=== PATIENT | female | born 1970 | race Caucasian/White ===

== ENCOUNTER 2019-07-22 13:15 | Outpatient (RCR) | payer OTHER, SELFPAY ==
--- NOTE | 2019-05-23 16:33 | PTOPEVAL ---
Thank you for referring this patient to [facility]. Please review, sign, date and return this plan of care EMILY. Pt referred to therapy to address her chronic right hip pain. She demonstrates muscle weakness, decreased hip range and increased pain with daily activities. She requires additional skilled therapy 2x/wk x 8 wk to address impairments and improved function. I agree with and certify that the following plan of care is medically necessary. Referring Physician Date Attending Provider: Mariana Lackey NP Referring Provider: *PT Outpatient Evaluation Start: 05/23/19 15:16 Freq: Status: Active Protocol: Document 05/23/19 15:16 MINOO (Rec: 05/23/19 16:24 CAP [email or web address]) Therapy Assessment Status Assessment Status Assessment Status Evaluation Outpatient Past Medical History Psychosocial History Hx Depression Yes Evaluation Information Problem Diagnosis right hip pain Onset 7 months Cause unknown Subjective Information Pt referred to therapy due to Query Text:As Reported By Patient/ right hip pain. She reports ~ Family 7 months of hip pain. Reports the pain is deep in the hip joint with constant ache pain. She reports she is unable to lay on right side. Reports difficulty and pain with steps , walking and standing. Reports increased hip joint pain with hip flex past 90 dg. She has increased pain with prolonged sitting and prolonged hip flex. States her sciatic nerve is also flared up due to waiting so long to seek treatment. She has to do prolonged sitting at a desk. States her office changed to electronic [employer] in 2018 and since 2019 spends most of the day at the computer. She will also have to carrying objects for work. She has 20 steps to negotiate at work. States she had a slip at work in . She did not have therapy or injection for the knee. She sleeps on her left side or back. She reports difficulty with sleeping due to pain.
--- NOTE | 2019-06-15 17:05 | PCPTNOTE ---
Patient called & cancelled scheduled appointment this date due to weather
--- NOTE | 2019-06-22 16:55 | PTOPEVAL ---
Thank you for referring this patient to [facility]. Please review, sign, date and return this plan of care EMILY. Pt has received 8 PT visits to address hip right hip pain. She has improved hip pain with minimal improved ability to perform sitting, walking and steps. She cont to demonstrate hip muscle weakness with significant soft tissue restriction and trigger point. She requires additional skilled therapy 2x/wk x 6 wk to achieve therapy goals. I agree with and certify that the following plan of care is medically necessary. Referring Physician Date Attending Provider: Mariana Lackey NP Referring Provider: *PT Outpatient Re-Evaluation Start: 05/23/19 15:16 Freq: Status: Active Protocol: Document 06/22/19 16:06 MINOO (Rec: 06/22/19 16:54 [facility] [email or web address]) Therapy Assessment Status Assessment Status Assessment Status Re-evaluation Evaluation Information Problem Diagnosis right hip pain Onset 7 months Cause unknown Subjective Information She wakes with decreased pain Query Text:As Reported By Patient/ and improved ability to Family perform steps as a result of therapy. She has to perform the steps repeatedly during the day for work. Reports cont to report deep, ache pain in the hip joint. She remains uable to lay on right side. She cont to have hip pain with prolong standing and walking. She has increased pain with prolonged sitting and prolonged hip flex. She is performing HEP consistently. She has been able to perform a walking program at least 1x/wk from 20 ' to 50'. Her pain remains a limitation with walking tolerance. Pain Assessment Timing of Pain Assessment Timing of Pain Assessment Re-assessment Pain Scale Pain Scale Used Numeric (1 - 10) Self Report Pain Assessment Right Hip(s) Reported Pain Level 3 Pain Description Aching,Radiating Pain Radiation Right Leg Pain Frequency Chronic Current Pain Intensity 3 Greatest Pain Intensity 9 Pain Aggravating Factors Exercise/Activity,Prolonged Position,Sitting,Stair Climbing,Walking,Weight Bearing/Standing Pain Behaviors
--- NOTE | 2019-07-06 09:46 | PCPTNOTE ---
Patient called & cancelled scheduled appointment this date due having to work late.
--- NOTE | 2019-07-22 14:07 | PTOPEVAL ---
Thank you for referring this patient to [facility]. Please review, sign, date and return this plan of care EMILY. Pt has received 13 therapy visits to address impairments of right hip. She has reached maximal potential with skilled therapy with most of her therapy goals achieved. She is indep with a HEP and verbalized understanding of importance of proper posture and glut stability with daily activities. DC skilled therapy with pt to cont with HEP. I agree with and certify that the following plan of care is medically necessary. Referring Physician Date Attending Provider: Mariana Glover NP Referring Provider: *PT Outpatient Re-Evaluation/Discharge Start: 05/23/19 15:16 Freq: Status: Active Protocol: Document 07/22/19 13:17 CAP (Rec: 07/22/19 13:45 [facility] [email or web address]) Therapy Assessment Status Assessment Status Assessment Status Re-evaluation Outpatient Past Medical History Psychosocial History Hx Depression Yes Evaluation Information Problem Diagnosis right hip pain Onset 7 months Cause unknown Subjective Information She was playing golf and hit Query Text:As Reported By Patient/ golf balls this weekend with Family increased pain and discomfort. She tried to do short bouts of walking with the golf. She reports cont ache of the hip region with walking activities. She cont to have some discomfort on the steps. Prolonged sitting or more painful than prolonged standing. She has been consistent with a walking program due to work. She reports significant improved radiating symptoms into right LE, occasional right knee pain with prolonged activity. She is able to sleep on right side without increased pain. Pain Assessment Timing of Pain Assessment Timing of Pain Assessment Re-assessment Pain Scale Pain Scale Used Numeric (1 - 10) Self Report Pain Assessment Right Hip(s) Reported Pain Level 1 Pain Description Aching Pain Frequency Chronic Current Pain Intensity 1 Greatest Pain Intensity 6 Pain Aggravating Factors Prolonged Position,Sitting, Walking Pain Behaviors None Pain Relief Interventions Used By Exercise Patient
== END 2019-07-25 09:45 | disposition home or self-care (01) ==
LOC: ANHPT 13:15
PROVIDERS: PCP Internal Medicine; Visit Provider Nurse Practitioner
DX: M25.551 Pain in right hip (principal)
CPT/HCPCS: 97014; 97110; 97140; 97162; G0283

== ENCOUNTER 2020-03-22 07:36 | Outpatient (CLI) | payer OTHER, SELFPAY ==
--- NOTE | ~2020-03-22 | MM_ITS ---
EXAMINATION: MM screening [facility] BI w debbie HISTORY: Screening mammogram TECHNIQUE: Craniocaudal and mediolateral oblique 3-D tomosynthesis images were obtained and synthetic 2-D images were generated. CAD analysis was submitted and interpreted. COMPARISON: 01/31/2019, 12/11/2017, 09/24/2016, 09/26/2016 BREAST PARENCHYMAL COMPOSITION: There are scattered areas of fibroglandular density. FINDINGS: There is no evidence of suspicious mass, calcification, or architectural distortion to sugg est malignancy in either breast. There has been no suspicious interval change. IMPRESSION: 1. No mammographic evidence of malignancy. 2. Recommend routine screening mammography in one year. BI-RADS Category 1: Negative Reviewed, dictated and finalized at location A. D PUMP OPERATOR
== END 2020-03-22 07:37 | disposition home or self-care (01) ==
LOC: ANHIMG 07:41
PROVIDERS: PCP Internal Medicine; Visit Provider Student in an Organized Health Care Education/Training Program
DX: Z12.31 Encounter for screening mammogram for malignant neoplasm of breast (principal)
CPT/HCPCS: 77063; 77067

== ENCOUNTER 2020-05-24 06:35 | Outpatient (CLI) | payer OTHER, SELFPAY ==
[2020-05-24 08:03] LABS: Basophils Absolute Auto 0.1 K/mm3 (0.0-0.1); Basophils Percent Auto 1.2 % (0.2-1.2); Eosinophils Absolute Auto 0.2 K/mm3 (0-0.3); Eosinophils Percent Auto 4.5 % (0-4.4); Hematocrit 43.5 % (37.0-47.0); Hemoglobin 14.3 g/dL (12.0-15.0); Immature Granulocyte Absolute 0.02 K/mm3 (0.00-0.031); Immature Granulocyte Percent A 0.4 % (0-0.5); Lymphocytes Absolute Auto 1.85 K/mm3 (0.9-3.2); Lymphocytes Percent Auto 36.1 % (18.3-44.2); Mean Corpuscular HGB Conc 32.9 g/dl (32-36); Mean Corpuscular Volume 94.2 fl (80-100); Mean Platelet Volume 9.3 fl (7.4-10.4); Monocytes Absolute Auto 0.6 K/mm3 (0.1-0.6); Monocytes Percent Auto 11.7 % (2.6-8.5); Neutrophils Absolute Auto 2.4 K/mm3 (1.3-6.7); Neutrophils Percent Auto 46.1 % (45.5-73.1); Platelet Count Result 264 k/mm3 (150-375); Red Blood Count 4.62 M/mm3 (4.2-5.4); Red Cell Distribution Width 12.5 % (11.5-14.5); White Blood Count 5.1 K/mm3 (4.5-10.0)
[2020-05-24 08:15] LABS: Alanine Aminotransferase 22 U/L (4-35); Albumin Level 3.9 g/dL (3.5-5.1); Alkaline Phosphatase 74 U/L (38-126); Anion Gap 1 mmol/L (8-16); Aspartate Amino Transferase 30 U/L (14-36); Bilirubin,Total 0.5 mg/dL (0.2-1.3); Blood Urea Nitrogen 17 mg/dL (7-17); Calcium 9.2 mg/dL (8.4-10.2); Carbon Dioxide 37 mmol/L (22-30); Chloride 103 mmol/L (98-107); Cholesterol 188 mg/dL (0-200); Estimated Glomerular Filt Rate > 60; Glucose 92 mg/dL (65-105); HDL Direct 69 mg/dL; Potassium 4.2 mmol/L (3.4-5.0); Sodium 141 mmol/L (137-145); Triglycerides 46 mg/dL (<150)
[2020-05-24 08:26] LABS: LDL Cholesterol Direct 95 mg/dL
== END 2020-05-24 06:36 | disposition home or self-care (01) ==
PROVIDERS: PCP Internal Medicine; Visit Provider Nurse Practitioner
DX: Z13.228 Encounter for screening for other metabolic disorders (principal); Z13.220 Encounter for screening for lipoid disorders
CPT/HCPCS: 36415; 80053; 80061; 85025

== ENCOUNTER 2020-06-07 07:22 | Outpatient (CLI) | payer OTHER, SELFPAY ==
[2020-06-07 07:53] LABS: Anion Gap -1 mmol/L (8-16); Blood Urea Nitrogen 19 mg/dL (7-17); Calcium 8.8 mg/dL (8.4-10.2); Carbon Dioxide 37 mmol/L (22-30); Chloride 102 mmol/L (98-107); Estimated Glomerular Filt Rate 58; Glucose 88 mg/dL (65-105); Potassium 4.2 mmol/L (3.4-5.0); Sodium 138 mmol/L (137-145)
== END 2020-06-07 07:23 | disposition home or self-care (01) ==
PROVIDERS: Family Provider Internal Medicine; PCP Internal Medicine; Visit Provider Nurse Practitioner
DX: R79.81 Abnormal blood-gas level (principal)
CPT/HCPCS: 36415; 80048

== ENCOUNTER → 2020-09-25 04:10 | Outpatient (CLI) | payer OTHER, SELFPAY ==
[2020-09-25 20:06] LABS: SARS-CoV-2 RNA PCR Negative
== END ==
PROVIDERS: PCP Internal Medicine; Visit Provider Internal Medicine Critical Care Medicine
DX: Z20.822 Contact with and (suspected) exposure to COVID-19 (principal)
CPT/HCPCS: C9803; U0003; U0005

== ENCOUNTER 2020-09-27 07:00 | Outpatient (CLI) | payer OTHER, SELFPAY ==
--- NOTE | 2020-10-15 09:11 | WPDSLEEPSTUD ---
Sleep Study Date of Study: 09/27/20 Ordering Provider: Mariana Glover NP Interpreting Physician: Alexandra Hill MD Sleep Study Type: Polysomnogram Height: 1.77 m Weight: 80.739 kg Body Mass Index: 25.9 Neck Circumference (inches): 14 [place]: 4 Reason for Sleep Study Hypersomnia Sleep History Beth Collins is a 50 year old female with difficulty falling asleep and staying asleep. She is tired and exhausted all of the time. This started about 3 years ago. She wakes up throughout the night. She does not awaken from sleep feeling short of breath, does not awaken with heartburn, belching or coughing, and does not snore. Others do not tell her that she snores. She frequently has trouble sleeping with a cold. She does not wake up gasping for breath at night and does not have breathing problems at night observed by others. She occasionally sweats excessively at night, rarely notices her heart pounding or beating irregularly night. She does not fall asleep during the day, does not fall asleep involving she does not have loss of muscle tone was strong emotion. She does not have daytime difficulties due to excessive sleepiness. She does not feel paralyzed on waking or falling asleep. She does not have vivid dreamlike scenes upon awakening or falling asleep. She does not feel afraid to go to sleep. She rarely has nightmares, rarely remembers her dreams. She frequently has racing thoughts. She occasionally feels sad or depressed. She frequently has anxiety. She rarely has muscular tension. Occasionally she notices parts of her body jerking. She does not kick at night. She does not have complaints of crawling or aching feelings in her legs or leg pain at night. She occasionally has morning jaw pain. She does not grind her teeth during sleep. She rarely is bothered by pain during the day. She rarely is awakened by pain at night. She frequently wakes up feeling stiff in the morning occasionally with sore or achy muscles. She constantly wakes up with pain in the neck and spine. She has vertigo, headaches and depression diagnosed 15 years ago. She is on medication. Her fatigue is significant as this impacts her libido. Normal bedtime is 10:15-11:00 p.m. falling asleep within an hour. She wakes between 3 to 12 times. She stays awake for 5 minutes when she wakes. While awake, she goes to the bathroom and looks at the clock. Her wake-up time is 5:15 a.m.. On weekends, she goes to bed between 10:30 p.m. and 12 midnight and wakes at 7:00 a.m.. She estimates getting 6-7 hours of sleep at night. She does not take naps. Habits: Never smoker Caffeine 5 servings a day. Alcohol 1-3 beverages but not daily. She drinks 4 or 5 days out of the week. [facility] Past Medical History Medical History (Updated 10/15/20 @ 09:25 by Alexandra Hill MD) Allergies Cellulitis Depression Dermatitis Surgical History Surgical History H/O elbow surgery Right 2007 H/O shoulder surgery Right 2000 Family History Family History Father Hypertension Family history of elevated blood lipids Patient's father is Family history of cardiovascular disease Family history of malignant neoplasm Mother Hypertension Osteoporosis Low cholesterol in cultured lymphoblasts Social History Social History Smoking status: Never smoker Second hand tobacco smoke exposure: No Alcohol intake: current Medications Home Medications Medication Instructions Recorded Confirmed Type naproxen sodium 220 mg tablet 220 mg PO Q12H PRN 05/09/19 09/13/20 History triamcinolone acetonide 0.1 % 1 applic TOPICAL BID PRN 05/30/20 09/13/20 History topical cream bupropion HCl 300 mg 24 hr tablet, See Rx Instructions .ROUTE 09/10/20 09/13/20 Rx extended release .COMPLEX #90 tablet doxep
[2020-10-15 09:49] VITALS: BMI 25.9
== END 2020-09-28 06:40 | disposition home or self-care (01) ==
LOC: ANHCSM 15:10
PROVIDERS: PCP Internal Medicine; Visit Provider Nurse Practitioner
DX: G47.10 Hypersomnia, unspecified (principal); R06.83 Snoring
CPT/HCPCS: 95810

== ENCOUNTER 2020-09-28 06:42 | Outpatient (CLI) | payer OTHER, SELFPAY ==
[2020-09-28 07:27] LABS: Anion Gap 2 mmol/L (8-16); Blood Urea Nitrogen 15 mg/dL (7-17); Calcium 8.9 mg/dL (8.4-10.2); Carbon Dioxide 32 mmol/L (22-30); Chloride 104 mmol/L (98-107); Estimated Glomerular Filt Rate > 60; Glucose 91 mg/dL (65-105); Potassium 4.1 mmol/L (3.4-5.0); Sodium 138 mmol/L (137-145)
== END 2020-09-28 06:43 | disposition home or self-care (01) ==
PROVIDERS: PCP Internal Medicine; Visit Provider Nurse Practitioner
DX: R79.81 Abnormal blood-gas level (principal)
CPT/HCPCS: 36415; 80048

== ENCOUNTER → 2021-05-17 03:38 | Outpatient (CLI) | payer OTHER, SELFPAY ==
[2021-05-18 22:39] LABS: SARS-CoV-2 RNA PCR Positive
== END ==
PROVIDERS: PCP Internal Medicine; Visit Provider Nurse Practitioner
DX: U07.1 COVID-19 (principal)
CPT/HCPCS: C9803; U0003; U0005

== ENCOUNTER 2021-06-29 10:45 | Emergency (ER) | payer OTHER, SELFPAY ==
[2021-06-29 10:52] VITALS: BP 130/72; PULSE 86; RESP 16; TEMP 36.2; O2SAT 100
--- NOTE | 2021-06-29 10:53 | ED.GENADULT ---
HPI - General Adult General Chief complaint: Animal Bite Stated complaint: Cat bite. Time Seen by Provider: 06/29/21 10:55 Source: patient Mode of arrival: ambulatory Limitations: no limitations History of Present Illness HPI narrative: 51-year-old female presented for complaint of cat bite to right hand index finger, onset about 2 hours prior to arrival. This is a feral cat, unsure of rabies vaccinations. She states she washed the wound and took a shower afterwards. She is up-to-date on her tetanus vaccine. Endorses mild swelling and bleeding to the site. Related Data Allergies Allergy/AdvReac Type Severity Reaction Status Date / Time No Known Allergies Allergy Verified 06/29/21 10:55 Review of Systems Review of Systems: CONSTITUTIONAL: Denies body aches, fever, chills, or sweats. EYES: Denies visual changes, redness, or discharge. ENT: Denies rhinorrhea, congestion, sore throat, or otalgia. CARDIOVASCULAR: Denies chest pain, palpitations, or edema. RESPIRATORY: Denies cough or dyspnea. GASTROINTESTINAL: Denies abdominal pain, nausea, vomiting, or diarrhea. GENITOURINARY: Denies dysuria or hematuria. SKIN: right index finger laceration from cat bite MUSCULOSKELETAL: Denies back pain, joint pain, or myalgia. NEUROLOGIC: Denies headache, numbness, tingling, or weakness. PSYCH: Denies depression or anxiety. [facility] Past Medical History Medical History (Updated 06/29/21 @ 11:05 by Beth Arndt APRN) Allergies Cellulitis Depression Dermatitis Surgical History Surgical History H/O elbow surgery Right 2007 H/O shoulder surgery Right 2000 Family History Family History Father Hypertension Family history of elevated blood lipids Patient's father is Family history of cardiovascular disease Family history of malignant neoplasm Mother Hypertension Osteoporosis Low cholesterol in cultured lymphoblasts Social History Social History Smoking status: Never smoker Second hand tobacco smoke exposure: No Alcohol intake: current Alcohol use details: Pt has 4 drinks weekly. Comments At time of signature, I have reviewed and agree with nursing past medical, surgical, social and family history unless otherwise noted. Please see nursing chart for further information. There is no relevant family history pertinent to the presenting complaint Exam Narrative: GENERAL: Well-appearing, well-nourished, and in no acute distress. HEAD: Normocephalic, atraumatic. EYES: PERRLA, conjunctivae clear, and EOMI. ENT: Mucous membranes moist. NECK: Supple. No lymphadenopathy CHEST: Clear to auscultation. No respiratory distress. HEART: Regular rate and rhythm. SKIN: Warm, dry. Right hand 2nd digit lac approx 3mm to dorsal surface over PIP, scant bleeding, wound is approximated NEURO: Alert and oriented x3. PSYCH: Normal mood and affect Course Course Emergency Course: Patient is aware of diagnosis, understands and agrees to treatment plan. Anticipatory guidance given. Patient agrees to follow-up as directed and is aware of reasons to seek care at the emergency department. Portions of this record may have been created with voice recognition software Level of Care: Express Care Visit Vital Signs Vital signs: Vital Signs Temperature 97.1 F L 06/29/21 10:52 Pulse Rate 86 06/29/21 10:52 Respiratory Rate 16 06/29/21 10:52 Blood Pressure 130/72 06/29/21 10:52 Pulse Oximetry 100 06/29/21 10:52 Temperature 97.1 F L 06/29/21 10:52 Pulse Rate 86 06/29/21 10:52 Respiratory Rate 16 06/29/21 10:52 Blood Pressure 130/72 06/29/21 10:52 Pulse Oximetry 100 06/29/21 10:52 Reviewed Medical Decision Making Differential Diagnosis Differential Diagnosis: cat bite, laceration, cellulitis, tendon injury
== END 2021-06-29 11:09 | disposition home or self-care (01) ==
PROVIDERS: Emergency Provider Nurse Practitioner Family; PCP Internal Medicine
DX: S61.210A Laceration without foreign body of right index finger without damage to nail, initial encounter (principal); W55.01XA Bitten by cat, initial encounter; F32.A Depression, unspecified
CPT/HCPCS: 99213; G0463

== ENCOUNTER 2021-08-20 15:01 | Outpatient (CLI) | payer OTHER, SELFPAY ==
--- NOTE | ~2021-08-20 | MM_ITS ---
EXAMINATION: MM screening [facility] BI w debbie HISTORY: Screening mammogram TECHNIQUE: Craniocaudal and mediolateral oblique 3-D tomosynthesis images were obtained and synthetic 2-D images were generated. CAD analysis was submitted and interpreted. COMPARISON: 03/22/2020, 01/31/2019, 12/11/2017 bilateral screening mammogram examinations . BREAST PARENCHYMAL COMPOSITION: There are scattered areas of fibroglandular density. FINDINGS: There is no evidence of suspicious mass, calcification, or architectural distortion to sugg est malignancy in either breast. There has been no suspicious interval change. IMPRESSION: 1. No mammographic evidence of malignancy. 2. Recommend routine screening mammography in one year. BI-RADS Category 1: Negative Reviewed, dictated and finalized at location A.
== END 2021-08-20 15:02 | disposition home or self-care (01) ==
LOC: ANHIMG 15:03
PROVIDERS: PCP Internal Medicine; Visit Provider Student in an Organized Health Care Education/Training Program
DX: Z12.31 Encounter for screening mammogram for malignant neoplasm of breast (principal)
CPT/HCPCS: 77063; 77067

== ENCOUNTER 2021-09-04 07:17 | Outpatient (CLI) | payer OTHER, SELFPAY ==
[2021-09-04 08:02] LABS: Basophils Absolute Auto 0.1 K/mm3 (0.0-0.1); Eosinophils Absolute Auto 0.2 K/mm3 (0-0.3); Eosinophils Percent Auto 3.5 % (0-4.4); Hematocrit 44.9 % (37.0-47.0); Hemoglobin 14.4 g/dL (12.0-15.0); Immature Granulocyte Absolute 0.01 K/mm3 (0.00-0.031); Immature Granulocyte Percent A 0.2 % (0-0.5); Lymphocytes Absolute Auto 1.79 K/mm3 (0.9-3.2); Lymphocytes Percent Auto 36.8 % (18.3-44.2); Mean Corpuscular HGB Conc 32.1 g/dl (32-36); Mean Corpuscular Hemoglobin 30.7 pg (26-34); Mean Corpuscular Volume 95.7 fl (80-100); Mean Platelet Volume 9.4 fl (7.4-10.4); Monocytes Absolute Auto 0.6 K/mm3 (0.1-0.6); Monocytes Percent Auto 11.7 % (2.6-8.5); Neutrophils Absolute Auto 2.3 K/mm3 (1.3-6.7); Neutrophils Percent Auto 46.8 % (45.5-73.1); Platelet Count Result 243 k/mm3 (150-375); Red Blood Count 4.69 M/mm3 (4.2-5.4); Red Cell Distribution Width 13.1 % (11.5-14.5); White Blood Count 4.9 K/mm3 (4.5-10.0)
[2021-09-04 08:17] LABS: Alanine Aminotransferase 19 U/L (4-35); Albumin Level 4.3 g/dL (3.5-5.1); Alkaline Phosphatase 93 U/L (38-126); Anion Gap 5 mmol/L (8-16); Aspartate Amino Transferase 28 U/L (14-36); Bilirubin,Total 0.5 mg/dL (0.2-1.3); Blood Urea Nitrogen 23 mg/dL (7-17); Calcium 8.8 mg/dL (8.4-10.2); Carbon Dioxide 31 mmol/L (22-30); Chloride 104 mmol/L (98-107); Cholesterol 213 mg/dL (0-200); Estimated Glomerular Filt Rate > 60; Glucose 97 mg/dL (65-110); HDL Direct 69 mg/dL; Potassium 4.5 mmol/L (3.4-5.0); Sodium 140 mmol/L (137-145); Triglycerides 50 mg/dL (<150)
[2021-09-04 08:28] LABS: LDL Cholesterol Direct 98 mg/dL
[2021-09-04 08:30] LABS: Vitamin D 25 Hydroxy 35.5 ng/mL
== END 2021-09-04 07:18 | disposition home or self-care (01) ==
LOC: ANHLAB 07:18
PROVIDERS: PCP Internal Medicine; Visit Provider Nurse Practitioner
DX: F32.9 Major depressive disorder, single episode, unspecified (principal); Z13.220 Encounter for screening for lipoid disorders
CPT/HCPCS: 36415; 80053; 80061; 82306; 84443; 85025

== ENCOUNTER 2021-10-31 12:55 | Outpatient (CLI) | payer OTHER, SELFPAY ==
--- NOTE | 2021-11-01 09:10 | WPDPFTINT ---
PFT Procedure Performed PFT Procedure Performed Spirometry with Pre/Post Bronchodilator Plethysmography (Lung Vol) Diffusing Cap (DLCO) Flow Vol Loop PFT Interpretation Lung volumes were measured with the body plethysmography method. Lung volumes are unremarkable. Spirometry showed diminished expiratory flow rates and a diminished FEV1 to FVC ratio of 68% consistent with mild obstructive airway disease. Following administration of a bronchodilator there was no significant change in the expiratory flow rates. Lung diffusion capacity is within the normal range at 81% predicted. Impression: Mild obstructive airway disease with no response to bronchodilators on this testing. Lung diffusion capacity within the normal range.
--- NOTE | 2021-11-01 09:15 | P.METCHAL_ITS ---
Methacholine Challenge Methacholine Challenge:
--- NOTE | 2021-11-01 09:15 | WPDMETH ---
Methacholine Challenge Methacholine Challenge:
== END 2021-10-31 12:56 | disposition home or self-care (01) ==
PROVIDERS: PCP Internal Medicine; Visit Provider Nurse Practitioner
DX: R79.81 Abnormal blood-gas level (principal); R94.2 Abnormal results of pulmonary function studies
CPT/HCPCS: 94060; 94726; 94729

== ENCOUNTER 2022-10-08 08:44 | Outpatient (CLI) | payer OTHER, SELFPAY ==
[2022-10-08 15:09] LABS: Basophils Percent Auto 0.9 % (0.2-1.2); Eosinophils Absolute Auto 0.1 K/mm3 (0-0.3); Eosinophils Percent Auto 2.6 % (0-4.4); Hematocrit 46.7 % (37.0-47.0); Hemoglobin 15.1 g/dL (12.0-15.0); Immature Granulocyte Absolute 0.01 K/mm3 (0.00-0.031); Immature Granulocyte Percent A 0.2 % (0-0.5); Lymphocytes Absolute Auto 1.46 K/mm3 (0.9-3.2); Lymphocytes Percent Auto 31.1 % (18.3-44.2); Mean Corpuscular HGB Conc 32.3 g/dl (32-36); Mean Corpuscular Hemoglobin 30.7 pg (26-34); Mean Corpuscular Volume 94.9 fl (80-100); Monocytes Absolute Auto 0.5 K/mm3 (0.1-0.6); Monocytes Percent Auto 11.5 % (2.6-8.5); Neutrophils Absolute Auto 2.5 K/mm3 (1.3-6.7); Neutrophils Percent Auto 53.7 % (45.5-73.1); Platelet Count Result 256 k/mm3 (150-375); Red Blood Count 4.92 M/mm3 (4.2-5.4); Red Cell Distribution Width 12.9 % (11.5-14.5); White Blood Count 4.7 K/mm3 (4.5-10.0)
[2022-10-08 16:51] LABS: Vitamin D 25 Hydroxy 31.3 ng/mL
[2022-10-08 17:09] LABS: Alanine Aminotransferase 22 U/L (6-35); Albumin Level 4.3 g/dL (3.5-5.1); Alkaline Phosphatase 95 U/L (38-126); Anion Gap 4 mmol/L (8-16); Aspartate Amino Transferase 31 U/L (14-36); Bilirubin,Total 0.6 mg/dL (0.2-1.3); Blood Urea Nitrogen 19 mg/dL (7-17); Calcium 9.1 mg/dL (8.4-10.2); Carbon Dioxide 33 mmol/L (22-30); Chloride 103 mmol/L (98-107); Cholesterol 210 mg/dL (0-200); Estimated Glomerular Filt Rate > 60; Glucose 84 mg/dL (65-110); HDL Direct 81 mg/dL; Potassium 4.6 mmol/L (3.4-5.0); Sodium 140 mmol/L (137-145); Triglycerides 54 mg/dL (<150)
[2022-10-08 17:18] LABS: LDL Cholesterol Direct 103 mg/dL
== END 2022-10-08 08:45 | disposition home or self-care (01) ==
LOC: ANHGOSHLAB 08:45
PROVIDERS: PCP Internal Medicine; Visit Provider Nurse Practitioner
DX: F32.9 Major depressive disorder, single episode, unspecified (principal); Z13.220 Encounter for screening for lipoid disorders
CPT/HCPCS: 36415; 80053; 80061; 82306; 84443; 85025

== ENCOUNTER 2022-12-09 07:51 | Outpatient (CLI) | payer OTHER, SELFPAY ==
--- NOTE | ~2022-12-09 | MM_ITS ---
EXAMINATION: MM screening [facility] BI w debbie HISTORY: Screening mammogram TECHNIQUE: Craniocaudal and mediolateral oblique 3-D tomosynthesis images were obtained and synthetic 2-D images were generated. Bilateral rotated lateral CC views. CAD analysis was submitted and interp reted. COMPARISON: August 20, 2021, March 22, 2020, January 31, 2019, 12/11/2017 bilateral screening mammo gram examinations BREAST PARENCHYMAL COMPOSITION: There are scattered areas of fibroglandular density. FINDINGS: There is asymmetry in the deep central/outer right breast on craniocaudal view. Diagnostic right mammogram is recommended, with ultrasound if required. Otherwise no suspicious mass, architectural distortion, malignant calcification, skin thickening or r etraction of either breast is detected IMPRESSION: 1. Asymmetry in the deep central outer right breast on craniocaudal view 2. Diagnostic right mammogram is recommended, with ultrasound if required BI-RADS Category 0: Incomplete: Needs additional imaging evaluation. Reviewed, dictated and finalized at location A.
== END 2022-12-09 07:52 | disposition home or self-care (01) ==
PROVIDERS: PCP Internal Medicine; Visit Provider Obstetrics & Gynecology
DX: Z12.31 Encounter for screening mammogram for malignant neoplasm of breast (principal); R92.8 Other abnormal and inconclusive findings on diagnostic imaging of breast
CPT/HCPCS: 77063; 77067

== ENCOUNTER 2023-01-05 12:49 | Outpatient (CLI) | payer OTHER, SELFPAY ==
--- NOTE | ~2023-01-05 | MM_ITS ---
EXAMINATION: MM diagnostic [facility] RT w debbie HISTORY: Right breast asymmetry on screening mammogram TECHNIQUE: Additional 3-D tomosynthesis images of the right breast were performed and synthetic 2-D i mages were generated. CAD analysis was submitted and interpreted. COMPARISON: 12/09/2022, 08/20/2021, 03/22/2020 FINDINGS: There is a return to baseline fibroglandular appearance with spot compression of the right breast in the area questioned on screening mammogram. IMPRESSION: 1. No mammographic evidence of malignancy. 2. Recommend routine screening mammography in one year. BI-RADS Category 1: Negative Reviewed, dictated and finalized at location A.
== END 2023-01-05 12:50 | disposition home or self-care (01) ==
PROVIDERS: PCP Internal Medicine; Visit Provider Obstetrics & Gynecology
DX: R92.8 Other abnormal and inconclusive findings on diagnostic imaging of breast (principal)
CPT/HCPCS: 77061; 77065; G0279

== ENCOUNTER 2024-01-13 08:51 | Outpatient (CLI) | payer OTHER, SELFPAY ==
[2024-01-13 19:45] LABS: Basophils Absolute Auto 0.1 K/mm3 (0.0-0.1); Basophils Percent Auto 0.8 % (0.2-1.2); Eosinophils Absolute Auto 0.2 K/mm3 (0-0.3); Eosinophils Percent Auto 3.6 % (0-4.4); Hematocrit 45.6 % (37.0-47.0); Hemoglobin 14.8 g/dL (12.0-15.0); Immature Granulocyte Absolute 0.01 K/mm3 (0.00-0.031); Immature Granulocyte Percent A 0.2 % (0-0.5); Lymphocytes Absolute Auto 1.86 K/mm3 (0.9-3.2); Lymphocytes Percent Auto 31.6 % (18.3-44.2); Mean Corpuscular HGB Conc 32.5 g/dl (32-36); Mean Corpuscular Volume 95.6 fl (80-100); Mean Platelet Volume 9.8 fl (7.4-10.4); Monocytes Absolute Auto 0.6 K/mm3 (0.1-0.6); Monocytes Percent Auto 9.5 % (2.6-8.5); Neutrophils Absolute Auto 3.2 K/mm3 (1.3-6.7); Neutrophils Percent Auto 54.3 % (45.5-73.1); Platelet Count Result 273 k/mm3 (150-375); Red Blood Count 4.77 M/mm3 (4.2-5.4); Red Cell Distribution Width 12.7 % (11.5-14.5); White Blood Count 5.9 K/mm3 (4.5-10.0)
[2024-01-13 21:17] LABS: Alanine Aminotransferase 20 U/L (6-35); Albumin Level 4.2 g/dL (3.5-5.1); Alkaline Phosphatase 91 U/L (38-126); Anion Gap 10 mmol/L (4-12); Aspartate Amino Transferase 34 U/L (14-36); Bilirubin,Total 0.7 mg/dL (0.2-1.3); Blood Urea Nitrogen 22 mg/dL (7-17); Carbon Dioxide 29 mmol/L (22-30); Chloride 102 mmol/L (98-107); Cholesterol 199 mg/dL (0-200); Estimated Glomerular Filt Rate > 60; Glucose 63 mg/dL (65-110); HDL Direct 69 mg/dL; Potassium 3.9 mmol/L (3.4-5.0); Sodium 141 mmol/L (137-145); Triglycerides 65 mg/dL (<150)
[2024-01-13 21:27] LABS: LDL Cholesterol Direct 108 mg/dL
[2024-01-13 22:21] LABS: Vitamin D 25 Hydroxy 32.9 ng/mL
== END 2024-01-13 08:52 | disposition home or self-care (01) ==
LOC: ANHGOSHLAB 08:52
PROVIDERS: PCP Internal Medicine; Visit Provider Nurse Practitioner
DX: F32.9 Major depressive disorder, single episode, unspecified (principal); E55.9 Vitamin D deficiency, unspecified; Z13.220 Encounter for screening for lipoid disorders
CPT/HCPCS: 36415; 80053; 80061; 82306; 84443; 85025

== ENCOUNTER 2024-02-01 13:01 | Outpatient (CLI) | payer OTHER, SELFPAY ==
--- NOTE | ~2024-02-01 | MM_ITS ---
EXAMINATION: MM screening [facility] BI w debbie HISTORY: Screening TECHNIQUE: Craniocaudal and mediolateral oblique 3-D tomosynthesis images were obtained and synthetic 2-D images were generated. CAD analysis was submitted and interpreted. COMPARISON: Comparison to multiple prior studies sequentially, with oldest reviewed study dated 01/31. BREAST PARENCHYMAL COMPOSITION: Not dense: There are scattered areas of fibroglandular density. FINDINGS: There is no evidence of suspicious mass, calcification, or architectural distortion to sugg est malignancy in either breast. There has been no suspicious interval change. IMPRESSION: 1. No mammographic evidence of malignancy. 2. Recommend routine screening mammography in one year. BI-RADS Category 1: Negative Reviewed, dictated and finalized at location B.
--- NOTE | ~2024-02-01 | DEXA_ITS ---
Bone Density Report Name: BRUNA AVALOS Age: 53 Sex: Female Ethnicity: White Date of : 1970 Indication: postmenopausal; screening for osteoporosis; height loss; Referring Provider: Santana French Study: Bone densitometry was performed. Exam Date: February 01, 2024 Accession number: [id number] Bone Density: Region BMD T-score Z-score Classification AP Spine(L1, L2, L3) 1.031 0.1 1.1 Normal Femoral Neck (Left) 0.774 -0.7 0.4 Normal Total Hip (Left) 1.030 0.7 1.4 Normal Femoral Neck (Right) 0.873 0.2 1.3 Normal Total Hip (Right) 1.039 0.8 1.5 Normal Femoral Neck Mean 0.824 -0.2 0.8 Normal Total Hip Mean 1.034 0.8 1.4 Normal World Health Organization criteria for BMD impression classify patients as: Normal (T-score at or above -1.0), Osteopenia (T-score between -1.0 and -2.5), or Osteoporosis (T-score at or below -2.5). 10-year Fracture Risk: FRAX not reported because: All T-scores for Spine Total, Hip Total, Femoral Neck at or above -1.0 Clinical Information Provided by Patient: Has used the following medications: Vitamin D, multi Patient maximum height was 70 Menopause Age: 49 No regular weight bearing exercise Drinks caffeinated beverages Onset of menses at age 11 Number of children 0 Impression: The patient has normal bone mass. Discussion: BONE DENSITY IS ABOVE THE MINIMUM DESIRABLE LEVEL AT ALL SKELETAL SITES TESTED. This patient?s bone mineral density is above the minimum desirable level (T-score -1.0 or better) at all sites measured. The patient should follow a healthful lifestyle (good nutrition with adequate calcium and vitamin D, and appropriate weight-bearing exercise). Follow-Up: Consider repeating this study in 5 years or sooner if there is some new clinical indication. Reported by: ELADIA on 02/01/2024 1:30:00 PM. Reviewed, dictated and finalized at location ARasheed POLO
== END 2024-02-01 13:02 | disposition home or self-care (01) ==
LOC: CHSIMG 13:02
PROVIDERS: PCP Internal Medicine; Visit Provider Obstetrics & Gynecology
DX: Z12.31 Encounter for screening mammogram for malignant neoplasm of breast (principal); Z78.0 Asymptomatic menopausal state
CPT/HCPCS: 77063; 77067; 77080

== ENCOUNTER 2024-05-24 00:56 | Day surgery (SDC) | payer OTHER, SELFPAY ==
[2024-03-09 09:18] VITALS: BMI 18.5
[2024-05-06 08:32] VITALS: BMI 28.0
[2024-05-24 06:18] VITALS: BP 120/66; PULSE 79; RESP 16; TEMP 35.6; O2SAT 99; BMI 28.8
[2024-05-24] MEDS: LACTATED RINGERS 1,000 ML 150 ML IV CONT (06:41)
--- NOTE | 2024-05-24 07:01 | P.PNAN_ITS ---
Anes - Initial Pre Proc Eval Procedure: Operation Date: 05/24/24 07:30 Proposed Procedures p Screening Colonoscopy - Sebastian Rogers MD Date/Time: 05/24/24 07:01 Surgeon: Sebastian Rogers MD Pre Op Diagnosis: screening neoplasm of colon Patient Data Age: 54 Gender: F Height: 1.75 m Weight: 88.5 kg Last Vital Signs Temp 35.6 C L 05/24/24 06:18 Pulse 79 05/24/24 06:18 Resp 16 05/24/24 06:18 BP 120/66 05/24/24 06:18 Pulse Ox 99 05/24/24 06:18 O2 Del Method Room Air 05/24/24 06:18 Allergies Allergy/AdvReac Type Severity Reaction Status Date / Time No Known Allergies Allergy Verified 05/24/24 06:23 Home Medications ?Medication ?Instructions ?Recorded ?Confirmed ?Type cholecalciferol (vitamin D3) 25 25 mcg PO DAILY 08/26/22 05/24/24 History mcg (1,000 unit) capsule estradiol 0.01% (0.1 mg/gram) See Rx Instructions .Route DAILY 09/08/23 05/24/24 Rx vaginal cream (Estrace) #42.5 grams multivitamin 1 tablet PO DAILY 09/08/23 05/24/24 History nsfaerm-speqmslotqtld-ltkmeiet 250 1 tablet PO Q4-6H PRN Headache 01/13/24 05/24/24 History mg-250 mg-65 mg tablet (Excedrin Extra Strength) bupropion HCl 300 mg 24 hr tablet, 300 mg PO DAILY #90 tabs 01/13/24 05/24/24 Rx extended release ibuprofen 200 mg capsule 800 mg PO Q6H PRN Pain 01/13/24 05/24/24 History triamcinolone acetonide 0.1 % 1 applic topical BID #15 grams 01/13/24 05/24/24 Rx topical cream Patient hx anesthesia problems: none Family hx anesthesia problems: none Results Review: All pre-operative results and documents have been reviewed as part of the pre- operative evaluation. [facility] Past Medical History Medical History Fracture of left great toe History of Mohs micrographic surgery for skin cancer Basal cell carcinoma (BCC) of head Skin cancer Allergies Depression Dermatitis Cellulitis Surgical History Surgical History S/P skin cancer resection H/O elbow surgery Right 2008 H/O shoulder surgery Right 2000 Family History Family History Father Hypertension Family history of elevated blood lipids Patient's father is Family history of cardiovascular disease Family history of malignant neoplasm Mother Hypertension Osteoporosis Low cholesterol in cultured lymphoblasts Social History Social History Smoking status: Never smoker Second hand tobacco smoke exposure: No Alcohol intake: current Drinks per week: 6 Alcohol use details: Pt has 4 drinks weekly. Substance use: never Substance use type: does not use Do You Feel Safe in your Home?: Yes Lack of Transportation: No Lack of Food: Never True Current Housing: I Have Housing Concerned About Future Housing: No Difficulty Paying Gas/Electric Bills: No Difficulty Paying for Meds: No Currently Unemployed: No Education: Bachelor's Degree Difficulty w/ Childcare or Family Care: No Living arrangements: with family Spiritual care concerns: No Anes - Eval Final PreProcedure Day of Procedure 05/24/24 07:01 Patient weight: overweight Heart: regular rate and rhythm Lungs: clear to auscultation Airway: Mallampati scale class II Neurological: alert and oriented Last oral intake: >/= 8 hours ASA classification: II Emergent: no Anesthetic plan: proceed Anesthesia type and monitoring: general GIVS and standard monitoring Results Review: All pre-operative results and documents have been reviewed as part of the pre- operative evaluation. Informed Consent: The patient's anesthetic plan and its attendant risks and benefits were discussed with the patient/family/POA. Questions were solicited and answers provided to the satisfaction of the patient/family/POA.
--- NOTE | 2024-05-24 07:36 | PM.IMHP ---
H&P: HPI History of Present Illness Date/Time: 05/24/24 07:36 Chief Complaint: screening colonoscopy Narrative: This is the patient's 2nd colonoscopy after 10 years. There are no GI symptoms and there is no family history of colorectal cancer. Review of Systems Review of Systems: All systems reviewed & are unremarkable except as noted in HPI and below PMFSH Past Medical History Medical History Fracture of left great toe History of Mohs micrographic surgery for skin cancer Basal cell carcinoma (BCC) of head Skin cancer Allergies Depression Dermatitis Cellulitis Surgical History Surgical History S/P skin cancer resection H/O elbow surgery Right 2007 H/O shoulder surgery Right 2000 Family History Family History Father Hypertension Family history of elevated blood lipids Patient's father is Family history of cardiovascular disease Family history of malignant neoplasm Mother Hypertension Osteoporosis Low cholesterol in cultured lymphoblasts Social History Social History Smoking status: Never smoker Second hand tobacco smoke exposure: No Alcohol intake: current Drinks per week: 6 Alcohol use details: Pt has 4 drinks weekly. Substance use: never Substance use type: does not use Do You Feel Safe in your Home?: Yes Lack of Transportation: No Lack of Food: Never True Current Housing: I Have Housing Concerned About Future Housing: No Difficulty Paying Gas/Electric Bills: No Difficulty Paying for Meds: No Currently Unemployed: No Education: Bachelor's Degree Difficulty w/ Childcare or Family Care: No Living arrangements: with family Spiritual care concerns: No Meds Home Medications and Allergies Home Medications ?Medication ?Instructions ?Recorded ?Confirmed ?Type cholecalciferol (vitamin D3) 25 25 mcg PO DAILY 08/26/22 05/24/24 History mcg (1,000 unit) capsule estradiol 0.01% (0.1 mg/gram) See Rx Instructions .Route DAILY 09/08/23 05/24/24 Rx vaginal cream (Estrace) #42.5 grams multivitamin 1 tablet PO DAILY 09/08/23 05/24/24 History bsbajys-ulqvvrfsslrtt-hsnbfpba 250 1 tablet PO Q4-6H PRN Headache 01/13/24 05/24/24 History mg-250 mg-65 mg tablet (Excedrin Extra Strength) bupropion HCl 300 mg 24 hr tablet, 300 mg PO DAILY #90 tabs 01/13/24 05/24/24 Rx extended release ibuprofen 200 mg capsule 800 mg PO Q6H PRN Pain 01/13/24 05/24/24 History triamcinolone acetonide 0.1 % 1 applic topical BID #15 grams 01/13/24 05/24/24 Rx topical cream Allergies Allergy/AdvReac Type Severity Reaction Status Date / Time No Known Allergies Allergy Verified 05/24/24 06:23 Vital Signs Vital Signs - 24 hr 05/24/24 06:18 Temperature 96.1 F L Pulse Rate 79 Respiratory Rate 16 Blood Pressure 120/66 Pulse Oximetry 99 Oxygen Delivery Room Air Exam Const: General: cooperative and healthy appearing Resp: Effort & Inspection: normal respiratory effort and able to speak in complete sentences Auscultation: clear to auscultation bilaterally Cardio: Rate: regular rate Rhythm: regular rhythm GI: Inspection: normal to inspection GI Palp: No No hepatosplenomegaly present Auscultation: normal bowel sounds Rectal Exam: deferred Skin: General skin exam: normal color Psych: Appearance: grossly normal Mental Status: mental status grossly normal Assessment and Plan Assessment and plan (1) Screening for colon cancer: Code(s): Z12.11 - Encounter for screening for malignant neoplasm of colon Status: Acute Assessment and Plan: The patient is deemed a good candidate for the procedure. Consent signed. Will proceed.
[2024-05-24 08:00] VITALS: BP 126/74; PULSE 77; RESP 23; O2SAT 100
[2024-05-24 08:10] VITALS: BP 131/71; PULSE 66; RESP 18; O2SAT 100
[2024-05-24 08:20] VITALS: BP 131/84; PULSE 71; RESP 22; O2SAT 100
--- OUTSIDE RECORDS SUMMARY | 2024-05-31 04:32 | XMS_ITS | Referral Summary ---
Author Organization [facility] Address [address] [place] [address] Care Team Providers Care Water Ski Assembler Name Role Phone Unavailable Primary Care Provider Unavailabl e Source Comments [facility],non-owned Affiliates and Associated Physician Practices is amultiple site organization consisting of ambulatory clinics and hospital sitesin [place], [place], [place] and [place]. This disclosure is being madepursuant to the Care Everywhere program and may not contain all information available regarding this patient. Last updated 18.[facility] Social History Tobacco Use Types Packs/Day Years Used Date Smoking Tobacco: Never Assessed Sex and Gender Information Value Date Recorded Sex Assigned at Not on file Gender Identity Not on file Sexual Orientation Not on file Plan of Treatment Not on [place] [address]
--- OUTSIDE RECORDS SUMMARY | 2024-05-31 04:32 | XMS_ITS | Encounter Summary ---
Author Organization [facility] Health Address [address] [place] [address] Care Team Providers Care Tour Narrator Name Role Phone Unavailable Primary Care Provider Unavailabl e Encounter Details Date Type Department Care Team (Late st Contact Info) Description 07/14/2022 Lab Requisition [facility] [address], [place] [address] Subhash Gomes MD [address] [facility] [facility] [place] [address] Social History Tobacco Use Types Packs/Day Years Used Date Smoking Tobacco: Never Assessed Sex and Gender Information Value Date Recorded Sex Assigned at Not on file Gender Identity Not on file Sexual Orientation Not on file documented as of this encounter Plan of Treatment Not on file documented as of this encounter Procedures Procedure Name Priority Date/Time Associated Diagnosis Comments DERMATOPATHOLOGY Routine 07/14/2022 12:0 0 AM STONE PAVER documented in this encounter Results * DERMATOPATHOLOGY (07/14/2022 12:00 AM STONE PAVER) Case Report Dermatopathology Report ? Case: [id number] ? Authorizing Provider: ??Subhash Gomes MD ?Collected: ? 07/14/2022 12:00 AM ? Ordering Location: ? [facility] ?Received: ?07/14/2022 03:34 PM ? Pathologist: ? Khalida Blackmon, ? MD ? Specimen: ?Skin, frontal scalp ? 3 12:30 PM [facility] DERMATOPATHOLOGY LABORATORY Final Diagnosis Specimen A. SKIN, frontal scalp: BASAL CELL CARCINOMA, NODULAR TYPE (C44.41) CALCINOSIS CUTIS (L94.2) 3 12:30 PM [facility] DERMATOPATHOLOGY LABORATORY Clinical History BCC vs AK Path#[id number] 3 12:30 PM [facility] DERMATOPATHOLOGY LABORATORY Gross Description Specimen A: Received is one formalin filled container labeled with the patient's name and designated frontal scalp. The specimen consists of a shave biopsy measuring 9x6x1 mm. Jar 0. 3 12:30 PM [facility] DERMATOPATHOLOGY LABORATORY Microscopic Description Specimen A. SKIN, frontal scalp: Within the dermis there are aggregates of basaloid cells with a high nuclear to cytoplasmic ratio and peripheral palisading. Within the dermis, there are aggregates of homogenous amorphous basophilic material consistent with calcium. 3 12:30 PM [facility] DERMATOPATHOLOGY LABORATORY Disclaimer An external and internal positive and negative controls are appropriate for the histochemical, immunohistochemical and immunofluorescence stain(s) in this case (if any), except where stated explicitly. The performance characteristics of the stain(s) cited in this report were developed and its performance characteristic determined by the Dermatopathology Laboratory at [facility], directed by Dr. Verenice Scott. These tests need not be, and therefore are not, approved by the [place] Food and Drug Administration. The tests are used for clinical purposes. Billing Codes Specimen Charges Stain Charges 56759 1 3 12:30 PM [facility] Embedded Images 3 12:30 PM [facility] Pathology/Cytolog y TISSUE SPECIMEN FROM SKIN / Unknown 07/14/2022 07/14/2022 3:34 PM [facility] Subhash Gomes MD LAB - PATHOLOGY/CYTO LOGY ORDERABLES DERMATOPATHOLOGY LABORATORY [facility] - Department of Dermatology [address], [address] [phone] documented in this encounter Visit Diagnoses Not on filedocumented in this encounter
--- OUTSIDE RECORDS SUMMARY | 2024-05-31 04:32 | XMS_ITS | Encounter Summary ---
Author Organization [facility] Health Address [address] [place] [address] Care Team Providers Care Licensed Optician Name Role Phone Unavailable Primary Care Provider Unavailabl e Encounter Details Date Type Department Care Team (Late st Contact Info) Description 06/24/2022 Lab Requisition [facility] [address] [place] [address] Subhash Gomes MD [address] [place] [address] Social History Tobacco Use Types [...] Priority Date/Time Associated Diagnosis Comments DERMATOPATHOLOGY Routine 06/23/2022 12:0 0 AM VOCATIONAL CASE MANAGER documented in this encounter Results * DERMATOPATHOLOGY (06/23/2022 12:00 AM VOCATIONAL CASE MANAGER) Case Report Dermatopathology Report ? Case: [id number] ? Authorizing Provider: ??Subhash Gomes MD ?Collected: ? 06/23/2022 12:00 AM ? Ordering Location: ? [facility] ?Received: ?06/24/2022 03:08 PM ? Pathologist: ? Torrey Scott MD ? Specimens: ?? A) - Skin, frontal scalp ? B) - Skin, crown ? 3 5:10 PM [facility] DERMATOPATHOLOGY LABORATORY Final Diagnosis Specimen A. 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 SKIN, crown: BASAL CELL CARCINOMA, NODULAR TYPE (C44.41) 3 5:10 PM [facility] DERMATOPATHOLOGY [facility]ORATORY Clinical History A: BCC vs. Other Path# [id number] B: BCC vs. Other Path# [id number] 3 5:10 PM [facility] DERMATOPATHOLOGY LABORATORY Gross Description Specimen A: Received is one formalin filled container labeled with the patient's name and designated frontal scalp. The specimen consists of a shave biopsy measuring 3x2x1, 3x2x1 mm. Jar 0. Specimen B: Received is one formalin filled container labeled with the patient's name and designated crown. The specimen consists of a shave biopsy measuring 4x3x1 mm. Jar 0. 3 5:10 PM [facility] DERMATOPATHOLOGY LABORATORY Microscopic Description Specimen A. SKIN, frontal scalp: There is focal parakeratosis. The lower half of the epidermis shows disorderly maturation of keratinocytes with nuclear pleomorphism. Sections show a perifollicular lymphohistiocytic infiltrate. Additional deeper sections were obtained and reviewed. Specimen B. SKIN, crown: Within the dermis there are aggregates of basaloid cells with a high nuclear to cytoplasmic ratio and peripheral palisading. 3 5:10 PM VOCATIONAL CASE MANAGER DERMATOPATHOLOGY LABORATORY Disclaimer An external and internal positive and negative controls are appropriate for the histochemical, immunohistochemical and immunofluorescence stain(s) in this case (if any), except where stated explicitly. The performance characteristics of the stain(s) cited in this report were developed and its performance characteristic determined by the Dermatopathology Laboratory at [facility], directed by Dr. Verenice Scott. These tests need not be, and therefore are not, approved by the [place] Food and Drug Administration. The tests are used for clinical purposes. Billing Codes Specimen Charges Stain Charges 10180 59944 1 1 3 5:10 PM VOCATIONAL CASE MANAGER DERMATOPATHOLOGY LABORATORY Embedded Images 3 5:10 PM VOCATIONAL CASE MANAGER DERMATOPATHOLOGY LABORATORY Pathology/Cytology TISSUE SPECIMEN FROM SKIN / Unknown 06/23/2022 06/24/2022 3:08 PM VOCATIONAL CASE MANAGER Miscellaneous samples (specimen) TISSUE SPECIMEN FROM SKIN / Unknown 06/23/2022 06/24/2022 3:08 PM VOCATIONAL CASE MANAGER Subhash Gomes MD LAB - PATHOLOGY/CYTO LOGY ORDERABLES DERMATOPATHOLOGY LABORATORY [facility] - Department of Dermatology [address], [address] [phone] documented in this encounter Visit Diagnoses Not on filedocumented in this encounter
--- OUTSIDE RECORDS SUMMARY | 2024-05-31 04:32 | XMS_ITS ---
Author Organization Unknown Medications Medication Instructions Effective Dates (start - stop) Status - - Compl eted tramadol hydrochloride 50 MG Oral Tablet - Completed 24 HR bupropion hydrochlorid e 300 MG Extended Release Oral Tablet - Compl eted dexamethasone 1 MG/ML / neom ycin 3.5 MG/ML / polymyxin B 51046 UNT/ML Ophthalmic Suspension - Complete d prednisolone acetate 10 MG/M L Ophthalmic Suspension - Completed 24 HR bupropion hydrochlorid e 300 MG Extended Release Oral Tablet - Compl eted 24 HR bupropion hydrochlorid e 300 MG Extended Release Oral Tablet - Compl eted estradiol 0.1 MG/ML Vaginal Cream 2023-08T00:00:00Z - Completed Patient Care team information Name Category Status Period Participants - - Proposed period not known -
--- OUTSIDE RECORDS SUMMARY | 2024-05-31 04:32 | XMS_ITS | Patient Health Summary ---
Author Organization [facility] Address [address] [place] [address] Care Team Providers Care Sales Support Administrator Name Role Phone Unavailable Primary Care Provider Unavailabl e Note from [facility],non-owned Affiliates and Associated Physician Practices is amultiple site organization consisting of ambulatory clinics and hospital sitesin [place], [place], [place] and [place]. This disclosure is being madepursuant to the Care Everywhere program and may not contain all information available regarding this patient. Last updated 18.[facility] Social History Tobacco Use Types Packs/Day Years Used Date Smoking Tobacco: Never Assessed Sex and Gender Information Value Date Recorded Sex Assigned at Not on file Gender Identity Not on file Sexual Orientation Not on file Procedures * DERMATOPATHOLOGY(Performed 07/14/2022) * DERMATOPATHOLOGY(Performed 06/23/2022) Results * DERMATOPATHOLOGY (07/14/2022 12:00 AM CASHIER GAMBLING) Only the most recent of2 resultswithin the time period is included. Case Report Dermatopathology Report ? Case: [id number] ? Authorizing Provider: ??Subhash Gomes MD ?Collected: ? 07/14/2022 12:00 AM ? Ordering Location: ? [facility] ?Received: ?07/14/2022 03:34 PM ? Pathologist: ? Khalida Blackmon, ? MD ? Specimen: ?Skin, frontal scalp ? 3 12:30 PM [facility] DERMATOPATHOLOGY LABORATORY Final Diagnosis Specimen A. SKIN, frontal scalp: BASAL CELL CARCINOMA, NODULAR TYPE (C44.41) CALCINOSIS CUTIS (L94.2) 3 12:30 PM [facility] DERMATOPATHOLOGY LABORATORY Clinical History BCC vs AK Path#[id number] 3 12:30 PM [facility] DERMATOPATHOLOGY LABORATORY Gross Description Specimen A: Received is one formalin filled container labeled with the patient's name and designated frontal scalp. The specimen consists of a shave biopsy measuring 9x6x1 mm. Jar 0. 3 12:30 PM [facility] DERMATOPATHOLOGY LABORATORY Microscopic Description Specimen A. SKIN, frontal scalp: Within the dermis there are aggregates of basaloid cells with a high nuclear to cytoplasmic ratio and peripheral palisading. Within the dermis, there are aggregates of homogenous amorphous basophilic material consistent with calcium. 3 12:30 PM [facility] DERMATOPATHOLOGY LABORATORY Disclaimer An external and internal positive and negative controls are appropriate for the histochemical, immunohistochemical and immunofluorescence stain(s) in this case (if any), except where stated explicitly. The performance characteristics of the stain(s) cited in this report were developed and its performance characteristic determined by the Dermatopathology Laboratory at [facility], directed by Dr. Verenice Scott. These tests need not be, and therefore are not, approved by the [place] Food and Drug Administration. The tests are used for clinical purposes. Billing Codes Specimen Charges Stain Charges 89649 1 3 12:30 PM [facility] DERMATOPATHOLOGY LABORATORY Embedded Images 3 12:30 PM [facility] DERMATOPATHOLOGY LABORATORY Pathology/Cytolog y TISSUE SPECIMEN FROM SKIN / Unknown 07/14/2022 07/14/2022 3:34 PM CASHIER GAMBLING Subhash Gomes MD LAB - PATHOLOGY/CYTO LOGY ORDERABLES DERMATOPATHOLOGY LABORATORY [facility] - Department of Dermatology [facility] Medicine [address] [place] [address], [address] [phone]
--- OUTSIDE RECORDS SUMMARY | 2024-05-31 04:32 | XMS_ITS | Clinical Summary ---
Author Organization [facility] Address [address] [place] [address] Care Team Providers Care Registered Nurse Supervisor Name Role Phone Unavailable Primary Care Provider Unavailabl e Source Comments [facility],non-owned Affiliates and Associated Physician Practices is amultiple site organization consisting of ambulatory clinics and hospital sitesin [place], [place], [place] and [place]. This disclosure is being madepursuant to the Care Everywhere program and may not contain all information available regarding this patient. Last updated 18.[facility] Social History Tobacco Use Types Packs/Day Years Used Date Smoking Tobacco: Never Assessed Sex and Gender Information Value Date Recorded Sex Assigned at Not on file Gender Identity Not on file Sexual Orientation Not on file Plan of Treatment Health Maintenance Due Date Last Done Comments COLOGUARD (AGES 45-75) - COL ON CA SCREENING 1969 COLON MONITORING 1969 COLONOSCOPY - COLON CA SCREENING 1969 CT COLONOGRAPHY - COLON CA SCREENING 1969 Colorectal Cancer Screening 1969 FIT - COLON CA SCREENING 1969 FLEX SIG - COLON CA SCREENING 1969 LIPID TESTING 1969 MAMMOGRAM 1969 PAP SMEAR 1969 HIV SCREENING 1984 HEPATITIS C SCREENING 04/04/1987 DTAP/TDAP/TD VACCINES (1 - Tdap) 1988 HEPATITIS B VACCINE (1 of 3 - 19+ 3-dose series) 1988 PNEUMOCOCCAL VACCINE 50+ (1 of 1 - PCV) 2019 ZOSTER VACCINE (1 of 2) 2019 COVID-19 VACCINE ( - 2023-2 5 season) 2024 INFLUENZA VACCINE (#1) 2024 DEPRESSION SCREENING 05/11/2024 HIB VACCINE Aged Out No longer eligi ble based on patient's age to complete this topic HPV VACCINE Aged Out No longer eligi ble based on patient's age to complete this topic MENINGOCOCCAL (Group B) VACCINE Aged Out No longer eligible based on patient's age to complete this topic MENINGOCOCCAL VACCINE Aged Out No nati yuliana eligible based on patient's age to complete this topic PNEUMOCOCCAL VACCINE Aged Out No long er eligible based on patient's age to complete this topic
== END 2024-05-24 08:36 | disposition home or self-care (01) ==
PROVIDERS: PCP Internal Medicine; Referring Provider Nurse Practitioner; Visit Provider Internal Medicine Gastroenterology
PROC: 0DJD8ZZ Inspection of Lower Intestinal Tract, Via Natural or Artificial Opening Endoscopic (ICD-10-PCS; CPT 45378; principal; 2024-05-24 07:30)
DX: Z12.11 Encounter for screening for malignant neoplasm of colon (principal); F32.A Depression, unspecified; Z79.82 Long term (current) use of aspirin; Z79.1 Long term (current) use of non-steroidal anti-inflammatories (NSAID); Z98.890 Other specified postprocedural states; Z85.828 Personal history of other malignant neoplasm of skin; Z80.9 Family history of malignant neoplasm, unspecified; Z82.49 Family history of ischemic heart disease and other diseases of the circulatory system
CPT/HCPCS: 45378; J2004; J2704; J7120

== ENCOUNTER 2025-01-25 08:43 | Outpatient (CLI) | payer OTHER, SELFPAY ==
--- OUTSIDE RECORDS SUMMARY | 2025-01-25 09:20 | XMS_ITS | Encounter Summary ---
Author Organization [facility] Address [address] [place] [address] Care Team Providers Care Television Production Assistant Name Role Phone Unavailable Primary Care Provider Unavailabl e Encounter Details Date Type Department Care Team (Late st Contact Info) Description 06/24/2022 Lab Requisition [facility] [address] [facility], [facility] [place] [phone] Subhash Gomes MD [address] [place] [address] Social History Tobacco Use Types Packs/Day Years Used Date Smoking Tobacco: Never Assessed Comments Unknown Sex and Gender Information Value Date Recorded Sex Assigned at Not on file Legal Sex Female 2:52 PM EDUCATIONAL THERAPY TEACHER Gender Identity Not on file Sexual Orientation Not on file documented as of this encounter Plan of Treatment Not on file documented as of this encounter Procedures Procedure Name Priority Date/Time Associated Diagnosis Comments DERMATOPATHOLOGY Routine 06/23/2022 12:0 0 AM EDUCATIONAL THERAPY TEACHER documented in this encounter Results * DERMATOPATHOLOGY (06/23/2022 12:00 AM EDUCATIONAL THERAPY TEACHER) Case Report Dermatopathology Report Case: [id number] Authorizing Provider: Subhash Gomes MD Collected: 06/23/2022 12:00 AM Ordering Location: [facility] Received: 06/24/2022 03:08 PM Pathologist: Torrey Scott MD Specimens: A) - Skin, frontal scalp B) - Skin, crown 5:10 PM EDUCATIONAL THERAPY TEACHER DERMATOPATHOLOGY LABORATORY Final Diagnosis Specimen A. 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 SKIN, crown: BASAL CELL CARCINOMA, NODULAR TYPE (C44.41) 3 5:10 PM [facility] [[email or web address]] DERMATOPATHOLOGY LABORATORY at 1710 EDUCATIONAL THERAPY TEACHER Clinical History A: BCC vs. Other Path# [id number] B: BCC vs. Other Path# [id number] 3 5:10 PM [facility] [[email or web address]] DERMATOPATHOLOGY LABORATORY Gross Description Specimen A: Received [...] 4x3x1 mm. Jar 0. 3 5:10 PM [facility] [[email or web address]] DERMATOPATHOLOGY LABORATORY Microscopic Description Specimen A. SKIN, [...] ratio and peripheral palisading. 3 5:10 PM [facility] [[email or web address]] DERMATOPATHOLOGY LABORATORY Disclaimer An external and internal positive and negative controls are appropriate for the histochemical, immunohistochemical and immunofluorescence stain(s) in this case (if any), except where stated explicitly. The performance characteristics of the stain(s) cited in this report were developed and its performance characteristic determined by the Dermatopathology Laboratory at [facility], directed by Dr. Verenice Scott. These tests need not be, and therefore are not, approved by the [place] Food and Drug Administration. The tests are used for clinical purposes. Billing Codes Specimen Charges Stain Charges 12630 32867 1 1 3 5:10 PM [facility] [[email or web address]] DERMATOPATHOLOGY LABORATORY Embedded Images 3 5:10 PM [facility] [[email or web address]] DERMATOPATHOLOGY LABORATORY Pathology/Cytology TISSUE SPECIMEN FROM SKIN / Unknown 06/23/2022 06/24/2022 3:08 PM [facility] [[email or web address]] Miscellaneous samples (specimen) TISSUE SPECIMEN FROM SKIN / Unknown 06/23/2022 06/24/2022 3:08 PM EDUCATIONAL THERAPY TEACHER us Subhash Gomes MD LAB - PATHOLOGY/CYTOLOGY ORDER KAMRAN Final Result DERMATOPATHOLOGY LABORATORY [facility] - Department of Dermatology [facility] Specialized Medicine [address] [place] [address], [address] [phone] documented in this encounter Visit Diagnoses Not on filedocumented in this encounter
--- OUTSIDE RECORDS SUMMARY | 2025-01-25 09:20 | XMS_ITS | Clinical Summary ---
Author Organization [facility] Address [address] [place] [address] Care Team Providers Care Agriculture Scientist Name Role Phone Unavailable Primary Care Provider Unavailabl e Source Comments [facility],non-owned Affiliates and Associated Physician Practices is amultiple site organization consisting of ambulatory clinics and hospital sitesin [place], [place], [place] and [place]. This disclosure is being madepursuant to the Care Everywhere program and may not contain all information available regarding this patient. Last updated 18.[facility] [employer] Social History Tobacco Use Types Packs/Day Years Used Date Smoking Tobacco: Never Assessed Comments Unknown Sex and Gender Information Value Date Recorded Sex Assigned at Not on file Legal Sex Female 2:52 PM SLASH TRIMMER Gender Identity Not on file Sexual Orientation [...] SCREENING 1969 LIPID TESTING 1969 MAMMOGRAM 1969 HIV SCREENING 1984 HEPATITIS C SCREENING 04/04/1987 DTAP/TDAP/TD VACCINES (1 - Tdap) 1988 HEPATITIS B VACCINE (1 of 3 - 19+ 3-dose series) 1988 PAP SMEAR 1990 PNEUMOCOCCAL VACCINE 50+ (1 of 1 - PCV) 2019 ZOSTER VACCINE (1 of 2) 2019 DEPRESSION SCREENING 05/11/2024 COVID-19 VACCINE (1 - 2023-2 5 season) 2025 INFLUENZA VACCINE (#1) 2025 HIB VACCINE Aged Out No longer eligi ble based on patient's age to complete this topic HPV VACCINE Aged Out No longer eligi ble based on patient's age to complete this topic MENINGOCOCCAL (Group B) VACC INE SHARED DECISION-MAKING Aged Out No longer eligibl e based on patient's age to complete this topic MENINGOCOCCAL GROUPS A/C/Y/W VACCINE Aged Out No longer eligible b ased on patient's age to complete this topic Insurance [employer]
--- OUTSIDE RECORDS SUMMARY | 2025-01-25 09:20 | XMS_ITS | Encounter Summary ---
Author Organization [facility] Address [address] [place] [address] Care Team Providers Care Artists' Booking Representative Name Role Phone Unavailable Primary Care Provider Unavailabl e Encounter Details Date Type Department Care Team (Late st Contact Info) Description 07/14/2022 Lab Requisition [facility] [address] [facility], [facility] [place] [phone] Subhash Gomes MD [address] [facility] [address] [place] [address] Social History Tobacco Use Types Packs/Day Years Used Date Smoking Tobacco: Never Assessed Comments Unknown Sex and Gender Information Value Date Recorded Sex Assigned at Not on file Legal Sex Female 2:52 PM BLOCK CUTTER Gender Identity Not on file Sexual Orientation Not on file documented as of this encounter Plan of Treatment Not on file documented as of this encounter Procedures Procedure Name Priority Date/Time Associated Diagnosis Comments DERMATOPATHOLOGY Routine 07/14/2022 12:0 0 AM BLOCK CUTTER documented in this encounter Results * DERMATOPATHOLOGY (07/14/2022 12:00 AM BLOCK CUTTER) Case Report Dermatopathology Report Case: [id number] Authorizing Provider: Subhash Gomes MD Collected: 07/14/2022 12:00 AM Ordering Location: [facility] Received: 07/14/2022 03:34 PM Pathologist: Khalida Blackmon MD Specimen: Skin, frontal scalp 12:30 PM BLOCK CUTTER DERMATOPATHOLOGY LABORATORY Final Diagnosis Specimen A. SKIN, frontal scalp: BASAL CELL CARCINOMA, NODULAR TYPE (C44.41) CALCINOSIS CUTIS (L94.2) 12:30 PM BLOCK CUTTER DERMATOPATHOLOGY LABORATORY at 1230 BLOCK CUTTER Clinical History BCC vs AK Path#[id number] 3 12:30 PM [facility] DERMATOPATHOLOGY LABORATORY Gross Description Specimen A: Received is one formalin filled container labeled with the patient's name and designated frontal scalp. The specimen consists of a shave biopsy measuring 9x6x1 mm. Jar 0. 3 12:30 PM [facility] DERMATOPATHOLOGY LABORATORY Microscopic Description Specimen A. SKIN, frontal scalp: Within the dermis there are aggregates of basaloid cells with a high nuclear to cytoplasmic ratio and peripheral palisading. Within the dermis, there are aggregates of homogenous amorphous basophilic material consistent with calcium. 3 12:30 PM [facility] DERMATOPATHOLOGY LABORATORY Disclaimer An external and internal positive and negative controls are appropriate for the histochemical, immunohistochemical and immunofluorescence stain(s) in this case (if any), except where stated explicitly. The performance characteristics of the stain(s) cited in this report were developed and its performance characteristic determined by the Dermatopathology Laboratory at [facility], directed by Dr. Verenice Scott. These tests need not be, and therefore are not, approved by the [place] Food and Drug Administration. The tests are used for clinical purposes. Billing Codes Specimen Charges Stain Charges 61522 1 3 12:30 PM [facility] DERMATOPATHOLOGY LABORATORY Embedded Images 3 12:30 PM [facility] DERMATOPATHOLOGY LABORATORY Pathology/Cytolog y TISSUE SPECIMEN FROM SKIN / Unknown 07/14/2022 07/14/2022 3:34 PM BLOCK CUTTER us Subhash Gomes MD LAB - PATHOLOGY/CYTOLOGY ORDER KAMRAN Final Result DERMATOPATHOLOGY LABORATORY [facility] - Department of Dermatology [address], [address] [phone] documented in this encounter Visit Diagnoses Not on filedocumented in this encounter
[2025-01-25 14:08] LABS: Hematocrit 45.5 % (37.0-47.0); Hemoglobin 14.6 g/dL (12.0-15.0); Immature Granulocyte Percent A 0.0 % (0-0.5); Lymphocytes Absolute Auto 1.73 K/mm3 (0.9-3.2); Mean Corpuscular HGB Conc 32.1 g/dl (32-36); Mean Corpuscular Hemoglobin 30.4 pg (26-34); Mean Corpuscular Volume 94.8 fl (80-100); Nucleated Red Blood Cells Absolute Auto 0.000 K/mm3 (0.0-0.012); Nucleated Red Blood Cells Perc 0.0 % (0.0-0.2); Platelet Count Result 273 k/mm3 (150-375); Red Blood Count 4.80 M/mm3 (4.2-5.4); White Blood Count 5.5 K/mm3 (4.5-10.0)
[2025-01-25 15:27] LABS: Alanine Aminotransferase 20 U/L (6-35); Albumin Level 4.3 g/dL (3.5-5.1); Alkaline Phosphatase 95 U/L (38-126); Anion Gap 7 mmol/L (4-12); Aspartate Amino Transferase 35 U/L (14-36); Bilirubin,Total 0.4 mg/dL (0.2-1.3); Blood Urea Nitrogen 19 mg/dL (7-17); Calcium 9.1 mg/dL (8.4-10.2); Carbon Dioxide 30 mmol/L (22-30); Chloride 104 mmol/L (98-107); Cholesterol 209 mg/dL (0-200); Estimated Glomerular Filt Rate > 60; Glucose 71 mg/dL (65-110); HDL Direct 68 mg/dL; Potassium 4.4 mmol/L (3.4-5.0); Sodium 141 mmol/L (137-145); Total Protein 6.8 g/dL (6.3-8.2); Triglycerides 49 mg/dL (<150)
[2025-01-25 16:04] LABS: Thyroid Stimulating Hormone 3.030 uIU/mL (0.465-4.680)
[2025-01-25 16:12] LABS: Free T3 3.96 pg/mL (2.71-6.16); Free T4 Free Thyroxine 0.96 ng/dL (0.78-2.19)
== END 2025-01-25 08:44 | disposition home or self-care (01) ==
LOC: ANHGOSHLAB 08:44
PROVIDERS: PCP Nurse Practitioner; Visit Provider Nurse Practitioner
DX: Z13.220 Encounter for screening for lipoid disorders (principal); F32.A Depression, unspecified; E55.9 Vitamin D deficiency, unspecified; R53.83 Other fatigue; N95.1 Menopausal and female climacteric states
CPT/HCPCS: 36415; 80053; 80061; 82306; 84439; 84443; 84481; 85025

== ENCOUNTER 2025-02-06 13:14 | Outpatient (CLI) | payer OTHER, SELFPAY ==
--- NOTE | ~2025-02-06 | MM_ITS ---
EXAMINATION: MM screening [facility] BI w debbie HISTORY: Screening TECHNIQUE: Craniocaudal and mediolateral oblique 3-D tomosynthesis images were obtained and synthetic 2-D images were generated. CAD analysis was submitted and interpreted. COMPARISON: Comparison to multiple prior studies sequentially, with oldest reviewed study dated 01/31/2019. BREAST PARENCHYMAL COMPOSITION: Not dense: There are scattered areas of fibroglandular density. FINDINGS: There is no evidence of suspicious mass, calcification, or architectural distortion to suggest malignancy in either breast. There has been no suspicious interval change. IMPRESSION: 1. No mammographic evidence of malignancy. 2. Recommend routine screening mammography in one year. BI-RADS Category 1: Negative Reviewed, dictated and finalized at location B.
--- OUTSIDE RECORDS SUMMARY | 2025-02-06 13:36 | XMS_ITS | Encounter Summary ---
Author Organization [facility] Address [address] [place] [address] Care Team Providers Care Personnel Records Clerk Name Role Phone Unavailable Primary Care Provider Unavailabl e Encounter Details Date Type Department Care Team (Late st Contact Info) Description 07/14/[address] [facility] [address] [facility], [facility] [place] [phone] Subhash Gomes MD [address] [place] [address] Social History Tobacco Use Types Packs/Day Years Used Date Smoking Tobacco: Never Assessed Comments Unknown Sex and Gender Information Value Date Recorded Sex Assigned at Not on file Legal Sex Female 2:52 PM DIESEL SERVICE TECHNICIAN Gender Identity Not on file Sexual Orientation Not on file documented as of this encounter Plan of Treatment Not on file documented as of this encounter Procedures Procedure Name Priority Date/Time Associated Diagnosis Comments DERMATOPATHOLOGY Routine 07/14/2022 12:0 0 AM DIESEL SERVICE TECHNICIAN documented in this encounter Results * DERMATOPATHOLOGY (07/14/2022 12:00 AM DIESEL SERVICE TECHNICIAN) Case Report Dermatopathology Report Case: [id number] Authorizing Provider: Subhash Gomes MD Collected: 07/14/2022 12:00 AM Ordering Location: [facility] Received: 07/14/2022 03:34 PM Pathologist: Khaldia Blackmon MD Specimen: Skin, frontal scalp 12:30 PM DIESEL SERVICE TECHNICIAN DERMATOPATHOLOGY LABORATORY Final Diagnosis Specimen A. SKIN, frontal scalp: BASAL CELL CARCINOMA, NODULAR TYPE (C44.41) CALCINOSIS CUTIS (L94.2) 12:30 PM DIESEL SERVICE TECHNICIAN DERMATOPATHOLOGY LABORATORY at 1230 DIESEL SERVICE TECHNICIAN Clinical History BCC vs AK Path#[id number] 3 12:30 PM [facility] DERMATOPATHOLOGY LABORATORY Gross Description Specimen A: Received is one formalin filled container labeled with the patient's name and designated frontal scalp. The specimen consists of a shave biopsy measuring 9x6x1 mm. Jar 0. 3 12:30 PM [facility] DERMATOPATHOLOGY LABORATORY Microscopic Description Specimen A. SKIN, frontal scalp: Within the dermis there are aggregates of basaloid cells with a high nuclear to cytoplasmic ratio and peripheral palisading. Within the dermis, there are aggregates of homogenous amorphous basophilic material consistent with calcium. 3 12:30 PM [facility] DERMATOPATHOLOGY LABORATORY Disclaimer An external and internal positive and negative controls are appropriate for the histochemical, immunohistochemical and immunofluorescence stain(s) in this case (if any), except where stated explicitly. The performance characteristics of the stain(s) cited in this report were developed and its performance characteristic determined by the Dermatopathology Laboratory at [facility], directed by Dr. Verenice Scott. These tests need not be, and therefore are not, approved by the [place] Food and Drug Administration. The tests are used for clinical purposes. Billing Codes Specimen Charges Stain Charges 74900 1 3 12:30 PM [facility] DERMATOPATHOLOGY LABORATORY Embedded Images 3 12:30 PM [facility] DERMATOPATHOLOGY LABORATORY Pathology/Cytolog y TISSUE SPECIMEN FROM SKIN / Unknown 07/14/2022 07/14/2022 3:34 PM DIESEL SERVICE TECHNICIAN us Subhash Gomes MD LAB - PATHOLOGY/CYTOLOGY ORDER KAMRAN Final Result DERMATOPATHOLOGY LABORATORY [facility] - Department of Dermatology [address], [address] [phone] documented in this encounter Visit Diagnoses Not on filedocumented in this encounter
--- OUTSIDE RECORDS SUMMARY | 2025-02-06 13:36 | XMS_ITS | Clinical Summary ---
Author Organization [facility] Address [address] [place] [address] Care Team Providers Care Spine Surgeon Name Role Phone Unavailable Primary Care Provider Unavailabl e Source Comments [facility],non-owned Affiliates and Associated Physician Practices is amultiple site organization consisting of ambulatory clinics and hospital sitesin [place], [place], [place] and [place]. This disclosure is being madepursuant to the Care Everywhere program and may not contain all information available regarding this patient. Last updated 18.[employer] Social History Tobacco Use Types Packs/Day Years Used Date Smoking Tobacco: Never Assessed Comments Unknown Sex and Gender Information Value Date Recorded Sex Assigned at Not on file Legal Sex Female 2:52 PM GUN MECHANIC Gender Identity Not on file Sexual Orientation [...] patient's age to complete this topic Insurance [employer] [facility] Address: [facility] [address] [place] [address]
--- OUTSIDE RECORDS SUMMARY | 2025-02-06 13:36 | XMS_ITS | Encounter Summary ---
Author Organization [facility] Address [address] [place] [address] Care Team Providers Care Correctional Case Records Supervisor Name Role Phone Unavailable Primary Care Provider Unavailabl e Encounter Details Date Type Department Care Team (Late st Contact Info) Description 06/24/2022 Lab Requisition [facility] [address] [facility], [facility] [place] [phone] Subhash Gomes MD [address] [place] [address] Social History Tobacco Use Types Packs/Day Years Used Date Smoking Tobacco: Never Assessed Comments Unknown Sex and Gender Information Value Date Recorded Sex Assigned at Not on file Legal Sex Female 2:52 PM LAYOUT MECHANIC Gender Identity Not on file Sexual Orientation Not on file documented as of this encounter Plan of Treatment Not on file documented as of this encounter Procedures Procedure Name Priority Date/Time Associated Diagnosis Comments DERMATOPATHOLOGY Routine 06/23/2022 12:0 0 AM LAYOUT MECHANIC documented in this encounter Results * DERMATOPATHOLOGY (06/23/2022 12:00 AM LAYOUT MECHANIC) Case Report Dermatopathology Report Case: [id number] Authorizing Provider: Subhash Gomes MD Collected: 06/23/2022 12:00 AM Ordering Location: [facility] Received: 06/24/2022 03:08 PM Pathologist: Torrey Scott MD Specimens: A) - Skin, frontal scalp B) - Skin, crown 5:10 PM LAYOUT MECHANIC DERMATOPATHOLOGY LABORATORY Final Diagnosis Specimen A. 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 SKIN, crown: BASAL CELL CARCINOMA, NODULAR TYPE (C44.41) 3 5:10 PM [facility] DERMATOPATHOLOGY LABORATORY at 1710 LAYOUT MECHANIC Clinical History A: BCC vs. Other Path# [id number] B: BCC vs. Other Path# [id number] 3 5:10 PM [facility] DERMATOPATHOLOGY LABORATORY Gross Description Specimen A: [...] 4x3x1 mm. Jar 0. 3 5:10 PM [facility] DERMATOPATHOLOGY LABORATORY Microscopic Description Specimen A. [...] ratio and peripheral palisading. 3 5:10 PM [facility] DERMATOPATHOLOGY LABORATORY Disclaimer An external and internal positive and negative controls are appropriate for the histochemical, immunohistochemical and immunofluorescence stain(s) in this case (if any), except where stated explicitly. The performance characteristics of the stain(s) cited in this report were developed and its performance characteristic determined by the Dermatopathology Laboratory at [facility], directed by Dr. Verenice Scott. These tests need not be, and therefore are not, approved by the [place] Food and Drug Administration. The tests are used for clinical purposes. Billing Codes Specimen Charges Stain Charges 09121 47840 1 1 3 5:10 PM [facility] DERMATOPATHOLOGY LABORATORY Embedded Images 3 5:10 PM [facility] DERMATOPATHOLOGY LABORATORY Pathology/Cytology TISSUE SPECIMEN FROM SKIN / Unknown 06/23/2022 06/24/2022 3:08 PM [facility] Miscellaneous samples (specimen) TISSUE SPECIMEN FROM SKIN / Unknown 06/23/2022 06/24/2022 3:08 PM LAYOUT MECHANIC us Subhash Gomes MD LAB - PATHOLOGY/CYTOLOGY ORDER KAMRAN Final Result DERMATOPATHOLOGY LABORATORY [facility] - Department of Dermatology [facility] Specialized Medicine [address] [place] [address], [address] Floor [address] [phone] documented in this encounter Visit Diagnoses Not on filedocumented in this encounter
== END 2025-02-06 13:15 | disposition home or self-care (01) ==
LOC: CHSIMG 13:15
PROVIDERS: PCP Internal Medicine; Visit Provider Obstetrics & Gynecology
DX: Z12.31 Encounter for screening mammogram for malignant neoplasm of breast (principal)
CPT/HCPCS: 77063; 77067